=== PATIENT | female | born 1980 | race Caucasian/White ===

== ENCOUNTER 2017-08-09 19:44 | Emergency (ER) | payer BC, OTHER ==
[~2017-08-09] VITALS: Ht 160 cm; Wt 164.0 kg
[~2017-08-09 19:44] MED LIST: ATV1 PO; CLR10 PO; LISI-461 PO; LXP/20 PO; NAPR1CAP12 PO; NAPR1TAB9 PO; OMEP40CA41 PO; RIZA1TAB10 PO; TNR50 PO; WLLSR/200 PO
[2017-08-09 19:53] VITALS: TEMP 36.8; O2SAT 96; Ht 160 cm; Wt 164.0 kg
--- NOTE | 2017-08-09 20:20 | EMERGENCY ROOM VISIT NOTE ---
History Report prepared by Kenny: Vesna Kaplan Under the Supervision of: Dr. Delfina Soto D.O. First contact with patient: 19:50 Chief Complaint: SHORTNESS OF BREATH Stated Complaint: BREATHING DIFFICULTY Nursing Triage Summary: pt c/o sudden onset of sob while finishing supper, states does have hx of anxiety but nothing out of the normal was going on, states does get some sob when going up stairs. History of Present Illness The patient is a 37 year old female who presents to the Emergency Room with complaints of persistent shortness of breath that began a few hours ago. She notes that she began having shortness of breath while she was sitting down at dinner. The patient states that her episode lasted over 30 minutes. She notes that this symptom caused her difficulty mobilizing to the bathroom. Currently, the patient states that she does not have shortness of breath, but is not back to her baseline state. The patient states that she normally experiences shortness of breath while walking long distances or walking up the steps, noting that she has not experienced SOB while sitting down before. She denies any cramping or swelling her legs. She states that she has been having some nasal difficulty, but denies having the flu recently. The patient notes a possible aneurism, but denies having any abnormal abdominal pain. She states that she takes medication for hypertension. The patient denies any changes in her medications or any increased stress. She notes a history of anxiety. The patient denies a history of asthma or lung blood clots. The patient notes that she was in a long car ride to [place] for Thanksgiving. Source of History: patient Onset: few hours ago Position: other (global) Quality: other (shortness of breath) Modifying Factors (Worsening): movement Associated Symptoms: No abdominal pain Review of Systems See HPI for pertinent positives & negatives. A total of 10 systems reviewed and were otherwise negative. Past Medical & Surgical Medical Problems: (1) Anxiety (2) Benign hypertension (3) Cholecystectomy (4) Depression (5) Gastroesophageal reflux disease (6) Hypertension (7) Kidney stone (8) Sleep apnea (9) Thoracic aortic aneurysm Surgical Problems: (1) Hx of cholecystectomy Family History Cancer Diabetes mellitus Heart disease Hypertension Kidney stones Social History Smoking Status: Never Smoker Alcohol Use: none Drug Use: none Marital Status: Housing Status: lives with family Occupation Status: unemployed Current/Historical Medications Scheduled Atenolol (Atenolol), 50 MG PO QAM Bupropion Hcl (Wellbutrin Sr), 200 MG PO QAM Escitalopram Oxalate (Escitalopram Oxalate), 20 MG PO QAM Lisinopril (Lisinopril), 10 MG PO QAM Omeprazole (Prilosec), 40 MG PO QAM Scheduled PRN Loratadine (Claritin), 10 MG PO DAILY PRN for Allergy Symptoms Lorazepam (Lorazepam), 1 MG PO BID PRN for Anxiety Rizatriptan Benzoate (Rizatriptan Benzoate), 5 MG PO UD PRN for Migraine Allergies Coded Allergies: Benzocaine (Verified Allergy, Unknown, UNKNOWN, 08/09/17) Physical Exam Vital Signs Date Time Temp Pulse Resp B/P (MAP) Pulse Ox O2 Delivery O2 Flow Rate FiO2 08/09/17 22:11 84 20 114/78 96 Room Air 08/09/17 19:54 84 08/09/17 19:53 96 Room Air 08/09/17 19:53 96 Room Air 08/09/17 19:53 36.8 81 22 164/85 96 Room Air Physical Exam General: Morbidly obese. No acute respiratory distress. HEENT: Head - normocephalic and atraumatic Pupils are equal, round, and reactive to light. Extraocular eye muscles are intact, and sclera are anicteric. Nose - moist nasal mucosa without discharge. Mouth - moist buccal mucosa. Oropharynx is nonerythematous and there is no tonsillar exudate or edema noted. Neck: Supple; no JVD, nuchal rigidity, cervical lymphadenopathy, or auscultated bruits. Heart: Regular rate and rhythm. There is a normal S1 and S2 with no murmurs, clicks, or gallops appreciated. Lungs: Lung sounds diminished in all lung schultz, secondary to body habitus. No wheezes, rales, or rhonchi. Abdomen: Soft, completely nontender, nondistended, with good bowel sounds. There are no palpable pulsatile masses or hepatosplenomegaly. There is no guarding, rigidity, or rebound noted. Extremities: No evidence of cyanosis, clubbing, or edema. There are easily palpable peripheral pulses. Skin: warm and dry with good turgor and no rashes. Medical Decision & Procedures ER Provider Diagnostic Interpretation: Radiology results as stated below per my review and the radiologist's interpretation: TWO VIEW CHEST CLINICAL HISTORY: Dyspnea. FINDINGS: PA and lateral chest radiographs are compared to study dated 02/14/2015 and correlated with chest CT dated 02/15/2015. The examination is degraded by large body habitus. The cardiomediastinal silhouette is unremarkable. The lungs and pleural spaces are clear. There is no pneumothorax. The bony thorax appears intact. IMPRESSION: No active disease in the chest Electronically signed by: Dickson Miramontes M.D. 08/09/2017 9:19 PM Laboratory Results 08/09/17 20:58 Red Blood Count 4.18, Mean Corpuscular Volume 84.9, Mean Corpuscular Hemoglobin 27.5, Mean Corpuscular Hemoglobin Concent 32.4, Mean Platelet Volume 9.3, Neutrophils (%) (Auto) 66.3, Lymphocytes (%) (Auto) 23.7, Monocytes (%) (Auto) 8.5, Eosinophils (%) (Auto) 0.9, Basophils (%) (Auto) 0.2, Neutrophils # (Auto) 7.50, Lymphocytes # (Auto) 2.68, Monocytes # (Auto) 0.96, Eosinophils # (Auto) 0.10, Basophils # (Auto) 0.02 08/09/17 20:58 Test 08/09/17 20:58 White Blood Count 11.31 K/uL (4.8-10.8) Red Blood Count 4.18 M/uL (4.2-5.4) Hemoglobin 11.5 g/dL (12.0-16.0) Hematocrit 35.5 % (37-47) Mean Corpuscular Volume 84.9 fL (80-100) Mean Corpuscular Hemoglobin 27.5 pg (25-34) Mean Corpuscular Hemoglobin Concent 32.4 g/dl (32-36) Platelet Count 258 K/uL (130-400) Mean Platelet Volume 9.3 fL (7.4-10.4) Neutrophils (%) (Auto) 66.3 % Lymphocytes (%) (Auto) 23.7 % Monocytes (%) (Auto) 8.5 % Eosinophils (%) (Auto) 0.9 % Basophils (%) (Auto) 0.2 % Neutrophils # (Auto) 7.50 K/uL (1.4-6.5) Lymphocytes # (Auto) 2.68 K/uL (1.2-3.4) Monocytes # (Auto) 0.96 K/uL (0.11-0.59) Eosinophils # (Auto) 0.10 K/uL (0-0.5) Basophils # (Auto) 0.02 K/uL (0-0.2) RDW Standard Deviation 49.8 fL (36.4-46.3) RDW Coefficient of Variation 16.1 % (11.5-14.5) Immature Granulocyte % (Auto) 0.4 % Immature Granulocyte # (Auto) 0.05 K/uL (0.00-0.02) D-Dimer 390 ug/L FEU (0-500) Anion Gap 8.0 mmol/L (3-11) Est Creatinine Clear Calc Drug Dose 141.1 ml/min Estimated GFR () 104.5 Estimated GFR (Non- 90.1 BUN/Creatinine Ratio 15.7 (10-20) Calcium Level 9.6 mg/dl (8.5-10.1) Troponin I < 0.015 ng/ml (0-0.045) Pro-B-Type Natriuretic Peptide 28 pg/ml (0-450) Laboratory results per my review. ECG Indication: SOB/dyspnea Rate (beats per minute): 79 Rhythm: normal sinus Findings: no acute ischemic change, no ectopy Comparison ECG Date: no prior available ED Course 2005: Past medical records reviewed. The patient was evaluated in room C6. A complete history and physical exam was performed. An IV lock was initiated and labs are drones above. A twelve-lead EKG was obtained as described above. A chest x-ray was obtained and was unremarkable. 2102: I reevaluated the patient who was resting comfortably. She denied any symptoms at all at this time. Her shortness of breath has completely subsided. 2221: Upon reevaluation, the patient was resting comfortably. I discussed findings and results with the patient. She verbalized agreement of the treatment plan. The patient was discharged home. Medical Decision The patient is a 37 year old female who presents to the ED with shortness of breath. Differential diagnosis includes Anxiety, Pneumonia, Pulmonary Embolism, and Congestive Heart Failure. The lab results show: d-dimer- 390, normal troponin, normal renal function, glucose- 137, hemoglobin- 11.5 (slightly below normal for her), WBC- 11.31. This is a 37 year old female patient of sudden onset of shortness of breath this evening. Her symptoms have since resolved here in the emergency room. She remained hemodynamically stable. She had no risk factors for PE. Her d- dimer was negative. O2 saturations were normal. EKG and cardiac enzymes were negative. I've asked the patient have close follow-up with her PCP if the symptoms persist. Medication Reconcilliation Current Medication List: was personally reviewed by me Blood Pressure Screening Patient's blood pressure: Normal blood pressure Impression Primary Impression: SOB (shortness of breath) Scribe Attestation The scribe's documentation has been prepared under my direction and personally reviewed by me in its entirety. I confirm that the note above accurately reflects all work, treatment, procedures, and medical decision making performed by me. Departure Information Dispostion Home / Self-Care Referrals No Doctor, Assigned (PCP) Forms HOME CARE DOCUMENTATION FORM, IMPORTANT VISIT INFORMATION Patient Instructions [facility] Additional Instructions Rest. Limit stress and anxiety Follow up with PCP if shortness of breath persists. Return to the ER if symptoms worsen.
[2017-08-09 21:18] LABS: BASO % 0.2 %; BASO ABS # 0.02 K/uL (0-0.2); COMPLETE YES; EOS % 0.9 %; HEMATOCRIT 35.5 % (37-47); IG% 0.4 %; LYMPH % 23.7 %; LYMPH ABS # 2.68 K/uL (1.2-3.4); MEAN CELL VOLUME 84.9 fL (80-100); MEAN CORPUSCULAR HEMOGLOBIN 27.5 pg (25-34); MEAN CORPUSCULAR HGB CONC 32.4 g/dl (32-36); MEAN PLATELET VOLUME 9.3 fL (7.4-10.4); MONO % 8.5 %; NEUT % 66.3 %; PLATELET COUNT 258 K/uL (130-400); RED BLOOD COUNT 4.18 M/uL (4.2-5.4); WHITE BLOOD COUNT 11.31 K/uL (4.8-10.8)
--- NOTE | 2017-08-09 21:21 | DIAGNOSTIC IMAGING REPORT ---
TWO VIEW CHEST CLINICAL HISTORY: Dyspnea. FINDINGS: PA and lateral chest radiographs are compared to study dated 02/14/2015 and correlated with chest CT dated 02/15/2015. The examination is degraded by large body habitus. The cardiomediastinal silhouette is unremarkable. The lungs and pleural spaces are clear. There is no pneumothorax. The bony thorax appears intact. IMPRESSION: No active disease in the chest. Electronically signed by: Dickson Miramontes M.D. 08/09/2017 9:19 PM Dictated Date/Time: 08/09/2017 9:19 PM
[2017-08-09 21:34] LABS: BLOOD UREA NITROGEN 13 mg/dl (7-18); BUN/CREATININE RATIO 15.7 (10-20); CALCIUM 9.6 mg/dl (8.5-10.1); CARBON DIOXIDE 27 mmol/L (21-32); CHLORIDE 102 mmol/L (98-107); CREATININE 0.82 mg/dl (0.60-1.20); GLUCOSE 137 mg/dl (70-99); POTASSIUM 4.3 mmol/L (3.5-5.1); SODIUM 136 mmol/L (136-145)
[2017-08-09 22:11] VITALS: BP 114/78; PULSE 84; O2SAT 96
== END 2017-08-09 22:37 | disposition home or self-care (01) ==
LOC: EDBD 19:44 → C.EDC 19:45
DX: R06.02 Shortness of breath (principal); I10 Essential (primary) hypertension; F41.9 Anxiety disorder, unspecified; F32.9 Major depressive disorder, single episode, unspecified; Z90.49 Acquired absence of other specified parts of digestive tract; K21.9 Gastro-esophageal reflux disease without esophagitis; G47.30 Sleep apnea, unspecified; Z87.442 Personal history of urinary calculi; Z80.9 Family history of malignant neoplasm, unspecified; Z83.3 Family history of diabetes mellitus; Z82.49 Family history of ischemic heart disease and other diseases of the circulatory system; Z79.899 Other long term (current) drug therapy

== ENCOUNTER → 2017-09-30 | Day surgery (SDC) | payer BC, OTHER ==
[2017-09-22 10:17] VITALS: BMI 63.0
[~2017-09-30] VITALS: Ht 160 cm; Wt 162.7 kg
[~2017-09-30] MED LIST changes: -CLR10 PO; +COLE1TAB PO; +DICY20TA10 PO; +ERGO500011 PO; +FLUT0.15 NAE; +FURO-85 PO; +HYDR2.5O TOP; +KETAMINE HCL INJ 50 MG/ML 10 ML VIAL ONE; +LIDOCAINE HCL 2% 2 ML VIAL (20MG/ML) ONE; +MELO15TA10 PO; +MIDAZOLAM HCL 1 MG/ML 2ML VIAL ONE; -NAPR1CAP12 PO; -NAPR1TAB9 PO; +ONDA4TAB46 PO; +ONDANSETRON INJ 2 MG/ML 2 ML VIAL IV PRN; +PROPOFOL IV EMULSION 10 MG/ML 20 ML VIAL IV ONE
[2017-09-30 08:21] VITALS: Ht 160 cm; Wt 162.7 kg
--- NOTE | 2017-09-30 08:28 | Endo History and Physical ---
History & Physical Date of Service: Sep 30, 2017. Chief Complaint: Pregastric bypass surgery Referring Physician: History of Present Illness Patient to have a gastric bypass surgery performed in the next few months. She is been referred for upper endoscopy for evaluation prior to her upcoming surgical procedure Past Medical History Anxiety, Reflux, Hypertension, Depression Past Surgical History Hx Cardiac Surgery: No Hx Internal Defibrillator: No Hx Pacemaker: No Hx Abdominal Surgery: Yes (REAL) Hx of Implantable Prosthesis: No Hx Post-Op Nausea and Vomiting: No Hx Cancer Surgery: No Hx Thoracic Surgery: No Hx Orthopedic: No Hx Urinary Tract Surgery: No Family History None Social History Smoking Status: Never Smoker Hx Substance Use: No Hx Alcohol Use: No Allergies Coded Allergies: Benzocaine (Verified Allergy, Mild, "THROAT GOT TINGLY AND SWELLING INSIDE MOUTH", 09/22/17) Current Medications Reported Home Medications Medications Dose Route/Sig Max Daily Dose Days Date Category Dose Instructions Colestid (Colestipol Hcl) 1 Gm Tab 1-2 Tabs PO DAILY PRN 09/22/17 Reported Zofran (Ondansetron HCl) 4 Mg Tab 4 Mg PO Q8H PRN 09/22/17 Reported Flonase Allergy Relief (Fluticasone Propionate (Nasal)) 50 Mcg/Act Spr 2 Sprays KATHRIN DAILY PRN 09/22/17 Reported Mobic (Meloxicam) 15 Mg Tab 15 Mg PO DAILY PRN 09/22/17 Reported Dicyclomine Hcl 20 Mg Tab 1 Tab PO QID PRN 09/22/17 Reported Hydrocortisone (Hydrocortisone (Topical)) 2.5 % Oin 1 Appln TOP BID PRN 09/22/17 Reported Vitamin D 87248 Unit (Ergocalciferol) 50,000 Unit Cap 1 Tab PO WK 09/22/17 Reported Lasix (Furosemide) 20 Mg Tab 20 Mg PO 2-3XWK 09/22/17 Reported Rizatriptan Benzoate 5 Mg Tab 5 Mg PO UD PRN 12/31/15 Reported TAKE ONE TABLET AT ONSET OF MIGRAINE, MAY REPEAT AFTER 2 HOURS IF NEEDED. MAXIMUM OF 2 PER DAY/4 PER WEEK. Wellbutrin Sr (Bupropion Hcl) 200 Mg Tabcr 200 Mg PO QAM 12/31/15 Reported Escitalopram Oxalate 20 Mg Tab 20 Mg PO QAM 12/31/15 Reported Prilosec (Omeprazole) 40 Mg Cap 40 Mg PO QAM 12/31/15 Reported Atenolol 50 Mg Tab 1.5 Tabs PO QAM 12/31/15 Reported Lorazepam 1 Mg Tab 1 Mg PO BID PRN 06/19/14 Reported Lisinopril 10 Mg Tab 10 Mg PO QAM 06/19/14 Reported Vital Signs Weight (Kilograms): 162.73 Height (Feet): 5 Height (Inches): 3 Physical Exam General Appearance: no apparent distress Respiratory/Chest: Auscultation: deminished air movement Cardiovascular: Heart Auscultation: RRR Abdomen: Inspection & Palpation: soft Assessment and Plan Upper endoscopy for evaluation of the patient's stomach and anatomy prior to a planned gastric bypass surgery. We've discussed risks to include bleeding, infection, perforation, pain and aspiration.
--- NOTE | 2017-09-30 09:15 | Discharge Instructions ---
Endoscopy Patient Instructions Date / Procedure(s) Performed Sep 30, 2017. EGD Allergy Information Coded Allergies: Benzocaine (Verified Allergy, Mild, "THROAT GOT TINGLY AND SWELLING INSIDE MOUTH", 09/22/17) Discharge Date / Findings Sep 30, 2017. Normal esophagus Diffuse gastritis Medication Instructions Reported Home Medications Medications Dose Route/Sig Max Daily Dose Days Date Category Dose Instructions Colestid (Colestipol Hcl) 1 Gm Tab 1-2 Tabs PO DAILY PRN 09/22/17 Reported Zofran (Ondansetron HCl) 4 Mg Tab 4 Mg PO Q8H PRN 09/22/17 Reported Flonase Allergy Relief (Fluticasone Propionate (Nasal)) 50 Mcg/Act Spr 2 Sprays KATHRIN DAILY PRN 09/22/17 Reported Mobic (Meloxicam) 15 Mg Tab 15 Mg PO DAILY PRN 09/22/17 Reported Dicyclomine Hcl 20 Mg Tab 1 Tab PO QID PRN 09/22/17 Reported Hydrocortisone (Hydrocortisone (Topical)) 2.5 % Oin 1 Appln TOP BID PRN 09/22/17 Reported Vitamin D 69163 Unit (Ergocalciferol) 50,000 Unit Cap 1 Tab PO WK 09/22/17 Reported Lasix (Furosemide) 20 Mg Tab 20 Mg PO 2-3XWK 09/22/17 Reported Rizatriptan Benzoate 5 Mg Tab 5 Mg PO UD PRN 12/31/15 Reported TAKE ONE TABLET AT ONSET OF MIGRAINE, MAY REPEAT AFTER 2 HOURS IF NEEDED. MAXIMUM OF 2 PER DAY/4 PER WEEK. Wellbutrin Sr (Bupropion Hcl) 200 Mg Tabcr 200 Mg PO QAM 12/31/15 Reported Escitalopram Oxalate 20 Mg Tab 20 Mg PO QAM 12/31/15 Reported Prilosec (Omeprazole) 40 Mg Cap 40 Mg PO QAM 12/31/15 Reported Atenolol 50 Mg Tab 1.5 Tabs PO QAM 12/31/15 Reported Lorazepam 1 Mg Tab 1 Mg PO BID PRN 06/19/14 Reported Lisinopril 10 Mg Tab 10 Mg PO QAM 06/19/14 Reported Provider Instructions Activity Restrictions - No exercising or heavy lifting for 24 hours. - Do not drink alcohol the day of the procedure. - Do not drive a car or operate machinery until the day after the procedure. - Do not make any important decisions or sign important papers in 24 hours after the procedure. Following Day: - Return to full activity which may include returning to work/school. Diet Start your diet with liquids and light foods (jello, soup, juice, toast). Then eat your usual diet if not nauseated. Treatment For Common After Affects For mild abdominal pain, bloating, or excessive gas: - Rest - Eat lightly - Lie on right side Follow-Up Information Follow-up with DR. CHOWDHURY as scheduled Gastritis is likely related to either bile reflux or perhaps one of your medications (Mobic). Anesthesia Information What You Should Know You have had a procedure that required some medicine to reduce anxiety and discomfort. This treatment is called moderate sedation. After receiving the treatment, you may be sleepy, but you will be able to breathe on your own. The effects of the treatment may last for several hours. Follow these instructions along with Activity/Diet recommendations noted above: * Do NOT do anything where dizziness or clumsiness would be dangerous. * Rest quietly at home today, then you can be up and about tomorrow. * Have a responsible person stay with you the rest of today. * You may have had an I.V. today. If so, you may take the dressing off later today. Recommendations Call your doctor if: * Trouble breathing * Continuous vomiting for more than 24 hours * Temperature above 101 degrees * Severe abdominal pain or bloating * Pain not relieved by pain medicine ordered * There is increased drainage or redness from any incision * A large amount of rectal bleeding greater than 2-3 tablespoons. (If you had a polyp/s removed or have hemorrhoids, a small amount of blood - from the rectum is to be expected.) * You have any unanswered questions or concerns. IN THE EVENT OF A SERIOUS EMERGENCY, GO TO THE NEAREST EMERGENCY ROOM Your discharge instructions were prepared by provider Antonio Fermin. Patient Instructions Signature Page Dona Whatley Patient (or Guardian) Signature/Date: I have read and understand the instructions given to me by my caregivers. Caregiver/RN/Doctor Signature/Date: The above-named patient and/or guardian has received patient instructions on this date. + Original Patient Signature Page (only) stays with chart. Please make copy for patient.
--- NOTE | 2017-09-30 09:19 | GI REPORT ---
Procedure Date: 09/30/2017 8:47 AM Procedure: Upper GI endoscopy Indications: Preoperative assessment for bariatric surgery to treat morbid obesity Medicines: Monitored Anesthesia Care Complications: No immediate complications. Estimated blood loss: Minimal. Estimated Blood Loss: Estimated blood loss was minimal. Procedure: Pre-Anesthesia Assessment: - Prior to the procedure, a History and Physical was performed, and patient medications, allergies and sensitivities were reviewed. The patient's tolerance of previous anesthesia was reviewed. - The risks and benefits of the procedure and the sedation options and risks were discussed with the patient. All questions were answered and informed consent was obtained. - Patient identification and proposed procedure were verified prior to the procedure by the physician, the nurse and the receiver bulk system. The procedure was verified in the procedure room. - Pre-procedure physical examination revealed no contraindications to sedation. - ASA Grade Assessment: III - A patient with severe systemic disease. - After reviewing the risks and benefits, the patient was deemed in satisfactory condition to undergo the procedure. - The anesthesia plan was to use monitored anesthesia care (MAC). - Immediately prior to administration of medications, the patient was re-assessed for adequacy to receive sedatives. - The heart rate, respiratory rate, oxygen saturations, blood pressure, adequacy of pulmonary ventilation, and response to care were monitored throughout the procedure. - The physical status of the patient was re-assessed after the procedure. After obtaining informed consent, the endoscope was passed under direct vision. Throughout the procedure, the patient's blood pressure, pulse, and oxygen saturations were monitored continuously. The scope was introduced through the mouth, and advanced to the third part of duodenum. The upper GI endoscopy was accomplished without difficulty. The patient tolerated the procedure well. Findings: The examined esophagus was normal. The Z-line was regular and was found 41 cm from the incisors. Diffuse moderate inflammation characterized by congestion (edema), erythema and granularity was found in the entire examined stomach. Biopsies were taken with a cold forceps for histology. Estimated blood loss was minimal. The examined duodenum was normal. Impression: - Normal esophagus. - Z-line regular, 41 cm from the incisors. - Gastritis. Biopsied. - Normal examined duodenum. Recommendation: - Discharge patient to home (ambulatory). - Advance diet as tolerated today. - Await pathology results. Antonio Fermin D.O. Antonio Fermin DO 09/30/2017 9:19:27 AM This report has been signed electronically. Note Initiated On: 09/30/2017 8:47 AM I attest to the content of the Intraoperative Record and orders documented therein, exceptions below
[2017-09-30 09:33] VITALS: BP 135/76; PULSE 82; O2SAT 95
--- NOTE | 2017-09-30 09:57 | Anesthesiology Progress Note ---
Anesthesia Post Op Note Date & Time Sep 30, 2017 at 09:57 Vital Signs Pain Intensity: 0 Vital Signs Past 12 Hours Date Time Temp Pulse Resp B/P (MAP) Pulse Ox O2 Delivery O2 Flow Rate FiO2 09/30/17 09:33 82 20 135/76 (95) 95 Room Air 09/30/17 09:18 84 18 123/73 (90) 95 Room Air 09/30/17 09:03 37.1 86 16 141/94 (110) 97 Room Air 09/30/17 08:33 37.1 90 24 148/92 (110) 95 Room Air Notes Mental Status: alert / awake / arousable, participated in evaluation Pt Amnestic to Procedure: Yes Nausea / Vomiting: adequately controlled Pain: adequately controlled Airway Patency, RR, SpO2: stable & adequate BP & HR: stable & adequate Hydration State: stable & adequate Anesthetic Complications: no major complications apparent
== END | disposition home or self-care (01) ==
LOC: C.GI 07:52
PROVIDERS: ATTEND Internal Medicine Gastroenterology
DX: K29.50 Unspecified chronic gastritis without bleeding (principal); F41.8 Other specified anxiety disorders; I10 Essential (primary) hypertension; F32.9 Major depressive disorder, single episode, unspecified; K21.9 Gastro-esophageal reflux disease without esophagitis; Z79.899 Other long term (current) drug therapy; E66.01 Morbid (severe) obesity due to excess calories